=== PATIENT | male | born 1970 | race Caucasian/White ===

== ENCOUNTER 2017-05-30 09:24 | Inpatient (IN) | payer OTHER, MEDICAID ==
[2017-05-30 10:36] LABS: ADD MAN DIFF? NO
[2017-05-30] MEDS: SOD CHLORIDE 0.9% 1,000 ML IV (10:38)
[2017-05-30] MEDS: ONDANSETRON (ODT) 4 MG TAB ODT (10:39)
[2017-05-30] MEDS: HYDROmorphONE 2 MG/ML SYG IV (10:39)
[2017-05-30 10:40] LABS: WHITE BLOOD COUNT 15.9 10^3/ul (4.8-10.8)
[2017-05-30 10:40] LABS: ABNORMAL IP MESSAGE 1; BASOPHIL # 0.1 10^3/ul (0.0-0.1); BASOPHILS % 0.3 % (0.0-2.0); EOSINOPHILS % 0.3 % (0.0-7.0); HEMATOCRIT 40.1 % (42.0-52.0); HEMOGLOBIN 13.8 g/dl (14.0-18.0); LYMPHOCYTES # 1.7 10^3/ul (0.8-2.9); LYMPHOCYTES % 10.9 % (15.0-51.0); MEAN CORPUSCULAR HEMOGLOBIN 32.9 pg (29.0-33.0); MEAN CORPUSCULAR HGB CONC 34.4 g/dl (32.0-37.0); MEAN CORPUSCULAR VOLUME 95.7 fl (82.0-101.0); MEAN PLATELET VOLUME 9.4 fl (7.4-10.4); MONOCYTES % 12.7 % (0.0-11.0); NEUTROPHIL # 11.9 10^3/ul (1.6-7.5); NEUTROPHILS % 74.9 % (39.0-77.0); PLATELET COUNT 275 10^3/UL (140-415); POSITIVE DIFF @See below; RED BLOOD COUNT 4.19 10^6/ul (4.70-6.10); RED CELL DISTRIBUTION WIDTH 12.2 % (11.5-14.5)
[2017-05-30 11:03] LABS: INR 0.94; PROTIME 12.7 Sec (11.9-14.9)
[2017-05-30 11:11] LABS: ALANINE AMINOTRANSFERASE 44 IU/L (13-69); ALKALINE PHOSPHATASE 74 IU/L (42-121); ANION GAP 12 (8-16); ASPARTATE AMINO TRANSFERASE 26 IU/L (15-46); BILIRUBIN,INDIRECT 0.6 mg/dl (0-1.1); BILIRUBIN,TOTAL 0.6 mg/dl (0.2-1.3); BLOOD UREA NITROGEN 11 mg/dl (7-20); CALCIUM 9.5 mg/dl (8.4-10.2); CARBON DIOXIDE 30 mmol/L (21-31); CHLORIDE 102 mmol/L (97-110); CREATININE 0.83 mg/dl (0.61-1.24); GLUCOSE 110 mg/dl (70-220); LIPASE 63 U/L (23-300); POTASSIUM 4.1 mmol/L (3.5-5.1); SODIUM 140 mmol/L (135-144)
[2017-05-30 11:12] LABS: ALBUMIN 4.4 g/dl (3.3-4.9); ALBUMIN/GLOBULIN RATIO 1.46; TOTAL PROTEIN 7.4 g/dl (6.1-8.1)
[2017-05-30] MEDS ORDERED: ONDANSETRON 4 MG INJ IV (11:30)
[2017-05-30] MEDS: FAMOTIDINE 20 MG TAB PO (12:00)
[2017-05-30] MEDS: DOCUSATE SODIUM 100 MG CAP PO ×2 (13:00→20:15)
[2017-05-30] MEDS: morphine 2 MG INJ IV ×4 (13:05→21:01)
[2017-05-30] MEDS: DEXTROSE 5%-0.45% NACL 1,000 ML IV (13:05)
[2017-05-30] MEDS: ZOLPIDEM 5 MG TAB PO (20:51)
[2017-05-30] MEDS: CYCLOBENZAPRINE 10 MG TAB PO (22:02)
[2017-05-31] MEDS: DEXTROSE 5%-0.45% NACL 1,000 ML IV ×2 (01:15→10:50)
[2017-05-31] MEDS: morphine 2 MG INJ IV (01:16)
[2017-05-31] MEDS: hydrALAzine 20 MG INJ IV (03:25)
[2017-05-31] MEDS: HYDROmorphONE 0.5 MG/0.5 ML SYG IV ×7 (04:50→23:19)
[2017-05-31 04:55] LABS: ADD MAN DIFF? NO
[2017-05-31 04:58] LABS: WHITE BLOOD COUNT 16.4 10^3/ul (4.8-10.8)
[2017-05-31 04:58] LABS: ABNORMAL IP MESSAGE 1; BASOPHILS % 0.2 % (0.0-2.0); EOSINOPHILS # 0.1 10^3/ul (0.0-0.5); EOSINOPHILS % 0.3 % (0.0-7.0); HEMATOCRIT 37.8 % (42.0-52.0); HEMOGLOBIN 13.2 g/dl (14.0-18.0); LYMPHOCYTES # 2.1 10^3/ul (0.8-2.9); MEAN CORPUSCULAR HEMOGLOBIN 32.6 pg (29.0-33.0); MEAN CORPUSCULAR HGB CONC 34.9 g/dl (32.0-37.0); MEAN CORPUSCULAR VOLUME 93.3 fl (82.0-101.0); MEAN PLATELET VOLUME 9.5 fl (7.4-10.4); MONOCYTE # 2.1 10^3/ul (0.3-0.9); MONOCYTES % 12.9 % (0.0-11.0); PLATELET COUNT 240 10^3/UL (140-415); POSITIVE DIFF @See below; RED BLOOD COUNT 4.05 10^6/ul (4.70-6.10); RED CELL DISTRIBUTION WIDTH 11.9 % (11.5-14.5)
[2017-05-31 05:26] LABS: ANION GAP 12 (8-16); BLOOD UREA NITROGEN 7 mg/dl (7-20); CALCIUM 9.1 mg/dl (8.4-10.2); CARBON DIOXIDE 25 mmol/L (21-31); CHLORIDE 105 mmol/L (97-110); CREATININE 0.62 mg/dl (0.61-1.24); GLUCOSE 126 mg/dl (70-220); MAGNESIUM 1.7 mg/dl (1.7-2.5); PHOSPHORUS 2.4 mg/dl (2.5-4.9); POTASSIUM 3.7 mmol/L (3.5-5.1); SODIUM 138 mmol/L (135-144)
[2017-05-31] MEDS: FAMOTIDINE 20 MG TAB PO (09:00)
[2017-05-31] MEDS: DOCUSATE SODIUM 100 MG CAP PO ×2 (09:00→20:17)
[2017-05-31] MEDS: ACETAMINOPHEN 325 MG TAB PO (10:04)
[2017-05-31] MEDS: TIOTROPIUM 18 MCG CAPSULE INHA DEV INH (10:30)
[2017-05-31] MEDS: SALMETEROL/FLUTICASONE 250/50 INHA INH ×2 (10:30→20:18)
[2017-05-31 14:00] LABS: ADD UMIC NO; UR ASCORBIC ACID NEGATIVE (NEGATIVE); UR BILIRUBIN (Dip) NEGATIVE (NEGATIVE); UR BLOOD (Dip) NEGATIVE (NEGATIVE); UR CLARITY CLEAR (CLEAR); UR COLOR YELLOW (YELLOW); UR GLUCOSE (Dip) NEGATIVE (NEGATIVE); UR KETONES (Dip) NEGATIVE (NEGATIVE); UR LEUKOCYTE ESTERASE (Dip) NEGATIVE Leu/ul (NEGATIVE); UR NITRITE (Dip) NEGATIVE (NEGATIVE); UR TOTAL PROTEIN (Dip) NEGATIVE (NEGATIVE); UR UROBILINOGEN (Dip) 2+ mg/dL (NEGATIVE)
[2017-05-31 14:02] LABS: HEPATITIS B SURFACE ANTIGEN NEGATIVE (NEGATIVE)
[2017-05-31] MEDS ORDERED: MIDAZOLAM 1 MG/ML 2 ML INJ ×2 (14:07→14:09)
[2017-05-31] MEDS ORDERED: FENTAnyl 50 MCG/ML VIAL (14:07)
[2017-05-31] MEDS ORDERED: morphine SULFATE/PF (10 MG/10 ML) INJ (14:13)
[2017-05-31] MEDS ORDERED: DIPHENHYDRAMINE 50 MG INJ IV ×2 (14:28→14:30)
[2017-05-31] MEDS ORDERED: NALBUPHINE HCL (10 MG/1 ML) INJ IV (14:28)
[2017-05-31] MEDS ORDERED: ONDANSETRON 4 MG INJ IV ×2 (14:30→16:30)
[2017-05-31] MEDS ORDERED: PROCHLORPERAZINE 10 MG INJ IV (14:30)
[2017-05-31] MEDS ORDERED: FENTAnyl 50 MCG/ML VIAL IV ×3 (14:30)
[2017-05-31] MEDS ORDERED: HYDROmorphONE (0.2 MG/ML) 10ML SYG IV ×3 (14:30)
[2017-05-31] MEDS ORDERED: MEPERIDINE 25 MG INJ IV (14:30)
[2017-05-31] MEDS ORDERED: CEFAZOLIN 1 GM INJ (14:39)
[2017-05-31] MEDS ORDERED: LIDOCAINE 2% (SDV) 5 ML INJ (14:39)
[2017-05-31] MEDS ORDERED: PROPOFOL 40 ML (14:39)
[2017-05-31] MEDS ORDERED: EPHEDrine SULFATE 50 MG/5 ML SYG ×2 (14:39→15:51)
[2017-05-31] MEDS ORDERED: ONDANSETRON 4 MG INJ (14:39)
[2017-05-31] MEDS ORDERED: DEXAMETHASONE 4 MG/ML 1 ML INJ (14:39)
[2017-05-31] MEDS ORDERED: FAMOTIDINE 20 MG INJ (14:40)
[2017-05-31 15:44] LABS: HEPATITIS C VIRAL ANTIBODY NEGATIVE (NEGATIVE)
[2017-05-31 15:49] LABS: THYROID STIMULATING HORMONE 0.688 MIU/L (0.465-4.680)
[2017-05-31] MEDS ORDERED: NALOXONE (0.4 MG/ML) INJ IV ×2 (16:30→17:00)
[2017-05-31] MEDS: SOD CHLORIDE 0.9% 1,000 ML IV (16:34)
[2017-05-31] MEDS: POLYMYXIN/BACITRACIN 1L IRRIG (16:50)
[2017-05-31] MEDS: CEFAZOLIN 1 GM/50 ML (PMX) 50 ML IVPB (17:00)
[2017-05-31] MEDS ORDERED: NACL 0.9% 3 ML SYG IV (17:00)
[2017-05-31] MEDS: NICOTINE (21 MG/24 HR) PATCH TRANSDERM (17:30)
[2017-05-31] MEDS: ZOLPIDEM 5 MG TAB PO (23:24)
[2017-06-01] MEDS: DEXTROSE 5%-0.45% NACL 1,000 ML IV ×2 (00:16→17:28)
[2017-06-01] MEDS: CEFAZOLIN 1 GM/50 ML (PMX) 50 ML IVPB ×2 (00:18→08:25)
[2017-06-01] MEDS: HYDROmorphONE 0.5 MG/0.5 ML SYG IV ×5 (02:17→14:18)
[2017-06-01] MEDS: oxyCODONE 5 MG TAB PO ×7 (04:42→23:28)
[2017-06-01] MEDS: SOD CHLORIDE 0.9% 1,000 ML IV ×2 (05:04→17:34)
[2017-06-01 05:37] LABS: ADD MAN DIFF? NO
[2017-06-01 05:42] LABS: ABNORMAL IP MESSAGE 1; BASOPHILS % 0.2 % (0.0-2.0); EOSINOPHILS % 0.3 % (0.0-7.0); HEMATOCRIT 32.6 % (42.0-52.0); HEMOGLOBIN 11.4 g/dl (14.0-18.0); LYMPHOCYTES # 2.4 10^3/ul (0.8-2.9); LYMPHOCYTES % 16.4 % (15.0-51.0); MEAN CORPUSCULAR HEMOGLOBIN 32.6 pg (29.0-33.0); MEAN CORPUSCULAR VOLUME 93.1 fl (82.0-101.0); MEAN PLATELET VOLUME 9.6 fl (7.4-10.4); MONOCYTE # 1.8 10^3/ul (0.3-0.9); MONOCYTES % 12.2 % (0.0-11.0); NEUTROPHIL # 10.2 10^3/ul (1.6-7.5); NEUTROPHILS % 70.4 % (39.0-77.0); PLATELET COUNT 255 10^3/UL (140-415); POSITIVE DIFF @See below; RED CELL DISTRIBUTION WIDTH 11.8 % (11.5-14.5)
[2017-06-01 05:42] LABS: WHITE BLOOD COUNT 14.5 10^3/ul (4.8-10.8)
[2017-06-01 06:05] LABS: ANION GAP 14 (8-16); BLOOD UREA NITROGEN 6 mg/dl (7-20); CALCIUM 8.8 mg/dl (8.4-10.2); CARBON DIOXIDE 25 mmol/L (21-31); CHLORIDE 104 mmol/L (97-110); CREATININE 0.63 mg/dl (0.61-1.24); GLUCOSE 106 mg/dl (70-220); POTASSIUM 3.7 mmol/L (3.5-5.1); SODIUM 139 mmol/L (135-144)
[2017-06-01] MEDS: SALMETEROL/FLUTICASONE 250/50 INHA INH ×2 (08:25→20:53)
[2017-06-01] MEDS: DOCUSATE SODIUM 100 MG CAP PO ×2 (08:25→20:53)
[2017-06-01] MEDS: TIOTROPIUM 18 MCG CAPSULE INHA DEV INH (08:25)
[2017-06-01] MEDS: FAMOTIDINE 20 MG TAB PO (08:25)
[2017-06-01] MEDS: NICOTINE (21 MG/24 HR) PATCH TRANSDERM (08:26)
[2017-06-01] MEDS: ENOXAPARIN 40 MG/0.4 ML SYG SC (08:40)
[2017-06-01] MEDS: HYDROmorphONE 1 MG/ML SYG IV ×2 (17:25→21:26)
[2017-06-01] MEDS: LORAZEPAM 1 MG TAB PO (18:36)
[2017-06-01] MEDS ORDERED: LORAZEPAM 1 MG TAB PO (22:00)
[2017-06-02] MEDS: HYDROmorphONE 1 MG/ML SYG IV ×4 (01:02→12:34)
[2017-06-02] MEDS: oxyCODONE 5 MG TAB PO ×5 (03:11→18:17)
[2017-06-02 05:20] LABS: ADD MAN DIFF? NO
[2017-06-02 05:32] LABS: ABNORMAL IP MESSAGE 1; BASOPHIL # 0.1 10^3/ul (0.0-0.1); BASOPHILS % 0.4 % (0.0-2.0); EOSINOPHILS # 0.1 10^3/ul (0.0-0.5); HEMOGLOBIN 12.2 g/dl (14.0-18.0); LYMPHOCYTES # 2.9 10^3/ul (0.8-2.9); LYMPHOCYTES % 19.4 % (15.0-51.0); MEAN CORPUSCULAR HEMOGLOBIN 33.1 pg (29.0-33.0); MEAN CORPUSCULAR HGB CONC 35.9 g/dl (32.0-37.0); MEAN CORPUSCULAR VOLUME 92.1 fl (82.0-101.0); MEAN PLATELET VOLUME 9.4 fl (7.4-10.4); MONOCYTES % 13.6 % (0.0-11.0); NEUTROPHIL # 9.5 10^3/ul (1.6-7.5); NEUTROPHILS % 65.1 % (39.0-77.0); PLATELET COUNT 268 10^3/UL (140-415); POSITIVE DIFF @See below; RED BLOOD COUNT 3.69 10^6/ul (4.70-6.10); RED CELL DISTRIBUTION WIDTH 11.9 % (11.5-14.5)
[2017-06-02 05:32] LABS: WHITE BLOOD COUNT 14.7 10^3/ul (4.8-10.8)
[2017-06-02] MEDS: DEXTROSE 5%-0.45% NACL 1,000 ML IV (05:53)
[2017-06-02 06:11] LABS: ANION GAP 10 (8-16); BLOOD UREA NITROGEN 10 mg/dl (7-20); CALCIUM 9.1 mg/dl (8.4-10.2); CARBON DIOXIDE 27 mmol/L (21-31); CHLORIDE 102 mmol/L (97-110); CREATININE 0.67 mg/dl (0.61-1.24); GLUCOSE 120 mg/dl (70-220); POTASSIUM 4.1 mmol/L (3.5-5.1); SODIUM 135 mmol/L (135-144)
[2017-06-02] MEDS: SALMETEROL/FLUTICASONE 250/50 INHA INH ×2 (08:28→20:40)
[2017-06-02] MEDS: DOCUSATE SODIUM 100 MG CAP PO ×2 (08:28→20:40)
[2017-06-02] MEDS: FAMOTIDINE 20 MG TAB PO (08:28)
[2017-06-02] MEDS: TIOTROPIUM 18 MCG CAPSULE INHA DEV INH (08:29)
[2017-06-02] MEDS: NICOTINE (21 MG/24 HR) PATCH TRANSDERM (08:30)
[2017-06-02] MEDS: ENOXAPARIN 40 MG/0.4 ML SYG SC (08:30)
[2017-06-02] MEDS: HYDROmorphONE 2 MG/ML SYG IV ×3 (15:52→23:46)
[2017-06-02] MEDS: LORAZEPAM 1 MG TAB PO (20:40)
[2017-06-02] MEDS: HYDROCODONE/APAP (10/325) TAB PO (21:54)
[2017-06-03] MEDS: HYDROCODONE/APAP (10/325) TAB PO ×5 (05:36→20:41)
[2017-06-03] MEDS: HYDROmorphONE 2 MG/ML SYG IV (07:44)
[2017-06-03] MEDS: SALMETEROL/FLUTICASONE 250/50 INHA INH ×2 (08:30→20:38)
[2017-06-03] MEDS: DOCUSATE SODIUM 100 MG CAP PO ×2 (08:30→20:38)
[2017-06-03] MEDS: NICOTINE (21 MG/24 HR) PATCH TRANSDERM (08:30)
[2017-06-03] MEDS: TIOTROPIUM 18 MCG CAPSULE INHA DEV INH (08:30)
[2017-06-03] MEDS: FAMOTIDINE 20 MG TAB PO (08:30)
[2017-06-03] MEDS: ENOXAPARIN 40 MG/0.4 ML SYG SC (08:31)
[2017-06-03] MEDS ORDERED: traMADol 50 MG TAB PO (10:00)
[2017-06-03] MEDS: HYDROmorphONE 0.5 MG/0.5 ML SYG IV ×4 (10:16→22:10)
[2017-06-03] MEDS: LORAZEPAM 1 MG TAB PO (22:15)
[2017-06-04] MEDS: HYDROmorphONE 0.5 MG/0.5 ML SYG IV ×2 (04:08→08:08)
[2017-06-04] MEDS: HYDROCODONE/APAP (10/325) TAB PO ×2 (06:01→10:17)
[2017-06-04] MEDS: NICOTINE (21 MG/24 HR) PATCH TRANSDERM (08:09)
[2017-06-04] MEDS: SALMETEROL/FLUTICASONE 250/50 INHA INH (08:09)
[2017-06-04] MEDS: DOCUSATE SODIUM 100 MG CAP PO (08:10)
[2017-06-04] MEDS: FAMOTIDINE 20 MG TAB PO (08:10)
[2017-06-04] MEDS: ENOXAPARIN 40 MG/0.4 ML SYG SC (08:10)
[2017-06-04] MEDS: TIOTROPIUM 18 MCG CAPSULE INHA DEV INH (08:10)
== END 2017-06-04 12:15 | disposition home or self-care (01) | DRG 482 ==
LOC: E/R 09:24 → MS1 11:07
PROC: 0QS704Z Reposition Left Upper Femur with Internal Fixation Device, Open Approach (ICD-10-PCS; principal; 2017-05-31 14:05)
DX: S72.142A Displaced intertrochanteric fracture of left femur, initial encounter for closed fracture (principal); F17.210 Nicotine dependence, cigarettes, uncomplicated; W01.0XXA Fall on same level from slipping, tripping and stumbling without subsequent striking against object, initial encounter; Y92.513 Shop (commercial) as the place of occurrence of the external cause; Z85.51 Personal history of malignant neoplasm of bladder; G89.29 Other chronic pain
CPT/HCPCS: 36415; 71045; 72170; 72192; 73500; 73510; 73530; 80048; 80053; 81003; 83690; 83735; 84100; 84443; 85025; 85610; 86803; 87340; 93005; 96374; 96375; 97110; 97116; 97163; 97530; 99285-25

== ENCOUNTER 2018-01-21 21:07 | Inpatient (IN) | payer OTHER ==
[2018-01-21] MEDS: HYDROmorphONE 1 MG/ML SYG IV (21:26)
[2018-01-21] MEDS: ONDANSETRON 4 MG INJ IV (21:26)
[2018-01-21 21:31] LABS: ADD MAN DIFF? NO
[2018-01-21 21:36] LABS: BASOPHIL # 0.1 10^3/ul (0.0-0.1); BASOPHILS % 0.6 % (0.0-2.0); EOSINOPHILS # 0.2 10^3/ul (0.0-0.5); EOSINOPHILS % 1.4 % (0.0-7.0); HEMATOCRIT 43.7 % (42.0-52.0); HEMOGLOBIN 15.2 g/dl (14.0-18.0); LYMPHOCYTES # 2.8 10^3/ul (0.8-2.9); LYMPHOCYTES % 19.8 % (15.0-51.0); MEAN CORPUSCULAR HEMOGLOBIN 33.2 pg (29.0-33.0); MEAN CORPUSCULAR HGB CONC 34.8 g/dl (32.0-37.0); MEAN CORPUSCULAR VOLUME 95.4 fl (82.0-101.0); MEAN PLATELET VOLUME 9.7 fl (7.4-10.4); MONOCYTE # 1.2 10^3/ul (0.3-0.9); MONOCYTES % 8.5 % (0.0-11.0); NEUTROPHIL # 9.8 10^3/ul (1.6-7.5); NEUTROPHILS % 69.1 % (39.0-77.0); PLATELET COUNT 324 10^3/UL (140-415); RED BLOOD COUNT 4.58 10^6/ul (4.70-6.10)
[2018-01-21 21:36] LABS: WHITE BLOOD COUNT 14.2 10^3/ul (4.8-10.8)
[2018-01-21] MEDS: SOD CHLORIDE 0.9% 1,000 ML IV (21:36)
[2018-01-21 21:41] LABS: ANION GAP 12 (8-16); BLOOD UREA NITROGEN 14 mg/dl (7-20); CALCIUM 10.1 mg/dl (8.4-10.2); CARBON DIOXIDE 26 mmol/L (21-31); CHLORIDE 110 mmol/L (97-110); CREATININE 1.34 mg/dl (0.61-1.24); GLUCOSE 123 mg/dl (70-220); POTASSIUM 4.1 mmol/L (3.5-5.1); SODIUM 144 mmol/L (135-144)
[2018-01-21 21:53] LABS: TROPONIN-I < 0.012 ng/ml (0.000-0.120)
[2018-01-21] MEDS ORDERED: NALOXONE 2 MG SYG (22:02)
[2018-01-21] MEDS ORDERED: FLUMAZENIL 0.5 MG INJ (22:06)
[2018-01-21] MEDS ORDERED: PROPOFOL 100 ML (23:47)
[2018-01-22] MEDS ORDERED: ETOMIDATE 20 MG INJ
[2018-01-22] MEDS ORDERED: SUCCINYLCHOLINE CHLORIDE 100 MG/5 ML SYG IV
[2018-01-22] MEDS: ETOMIDATE 20 MG INJ IV (00:17)
[2018-01-22] MEDS: SUCCINYLCHOLINE CHLORIDE 100 MG/5 ML SYG IV (00:17)
[2018-01-22] MEDS: PROPOFOL 100 ML IV (00:19)
[2018-01-22] MEDS ORDERED: ONDANSETRON 4 MG INJ IV (00:30)
[2018-01-22] MEDS ORDERED: ACETAMINOPHEN 325 MG TAB PO (00:30)
[2018-01-22 00:35] LABS: AADO2 Arterial 56.4 mmHg (7.0-24.0); Allen Test ACCEPTAB; Arterial Base Excess 0.6 mmol/L (-3.0-3); Arterial Blood Gas Oxygen Sat 99.3 mmHG (95.0-98.0); Arterial Fraction of Oxyhgb 96.2 % (93.0-99.0); Arterial HCO3 26.6 mmol/L (22.0-26.0); Arterial MetHb 0.1 % (0.0-1.5); MODE VENT - AC; Site Right Radial
[2018-01-22] MEDS ORDERED: FAMOTIDINE 20 MG INJ IV ×2 (01:00→21:00)
[2018-01-22] MEDS ORDERED: NACL 0.9% 3 ML SYG IV (01:00)
[2018-01-22 01:05] LABS: AMPHETAMINE/METHAMPHETAMINE Negative (NEGATIVE); BARBITURATES Negative (NEGATIVE); BENZODIAZEPINES Negative (NEGATIVE); CANNABINOIDS Positive (NEGATIVE); COCAINE Negative (NEGATIVE); OPIATES Negative (NEGATIVE)
[2018-01-22] MEDS: SOD CHLORIDE 0.9% 1,000 ML IV (01:53)
[2018-01-22] MEDS: MIDAZOLAM (DRIP) 50 mg/50 mL 50 ML IV (05:16)
[2018-01-22] MEDS: FAMOTIDINE 20 MG INJ IV (05:17)
[2018-01-22] MEDS: D5W-0.45 NACL + KCL 20 MEQ 1,000 ML IV (05:18)
[2018-01-22] MEDS: CEFTRIAXONE 1 GM/50 ML (PMX) 50 ML IVPB (05:25)
[2018-01-22 05:55] LABS: CREATINE KINASE 360 IU/L (23-200)
[2018-01-22 05:59] LABS: D-DIMER 262.82 ng/ml (<460)
[2018-01-22 06:08] LABS: CK INDEX 0.7; CK-MB 2.39 ng/ml (0.0-2.4); TROPONIN-I < 0.012 ng/ml (0.000-0.120)
[2018-01-22] MEDS: morphine 2 MG INJ IV (10:54)
[2018-01-22 11:59] LABS: CREATINE KINASE 383 IU/L (23-200)
[2018-01-22 12:02] LABS: ANION GAP 10 (8-16); BLOOD UREA NITROGEN 14 mg/dl (7-20); CALCIUM 9.1 mg/dl (8.4-10.2); CARBON DIOXIDE 25 mmol/L (21-31); CHLORIDE 113 mmol/L (97-110); GLUCOSE 100 mg/dl (70-220); SODIUM 144 mmol/L (135-144)
[2018-01-22] MEDS: HYDROmorphONE 0.5 MG/0.5 ML SYG IV ×3 (12:07→21:37)
[2018-01-22 12:12] LABS: CK INDEX 0.6; CK-MB 2.41 ng/ml (0.0-2.4); TROPONIN-I < 0.012 ng/ml (0.000-0.120)
[2018-01-22 12:20] LABS: ADD UMIC YES; UR ASCORBIC ACID NEGATIVE (NEGATIVE); UR BILIRUBIN (Dip) NEGATIVE (NEGATIVE); UR BLOOD (Dip) 1+ mg/dL (NEGATIVE); UR CLARITY CLEAR (CLEAR); UR COLOR YELLOW (YELLOW); UR GLUCOSE (Dip) NEGATIVE (NEGATIVE); UR KETONES (Dip) NEGATIVE (NEGATIVE); UR LEUKOCYTE ESTERASE (Dip) NEGATIVE Leu/ul (NEGATIVE); UR MUCUS FEW /HPF (NONE SEEN); UR NITRITE (Dip) NEGATIVE (NEGATIVE); UR RBC 14 /HPF (0-5); UR SPECIFIC GRAVITY (Dip) 1.019 (1.003-1.030); UR TOTAL PROTEIN (Dip) NEGATIVE (NEGATIVE); UR UROBILINOGEN (Dip) NEGATIVE (NEGATIVE); UR WBC 1 /HPF (0-5)
[2018-01-22] MEDS: NICOTINE (21 MG/24 HR) PATCH TRANSDERM (14:38)
[2018-01-22] MEDS: HYDROCODONE/APAP (10/325) TAB PO ×2 (14:39→19:10)
[2018-01-22] MEDS: LORAZEPAM 2 MG INJ IV (20:17)
[2018-01-22] MEDS: ONDANSETRON 4 MG INJ IV (21:37)
[2018-01-23] MEDS: HYDROmorphONE 0.5 MG/0.5 ML SYG IV ×3 (00:38→06:55)
[2018-01-23] MEDS: LORAZEPAM 2 MG INJ IV ×2 (02:19→08:25)
[2018-01-23 06:47] LABS: ADD MAN DIFF? NO
[2018-01-23 06:48] LABS: WHITE BLOOD COUNT 14.7 10^3/ul (4.8-10.8)
[2018-01-23 06:48] LABS: BASOPHIL # 0.1 10^3/ul (0.0-0.1); BASOPHILS % 0.5 % (0.0-2.0); EOSINOPHILS # 0.3 10^3/ul (0.0-0.5); EOSINOPHILS % 1.8 % (0.0-7.0); HEMATOCRIT 35.2 % (42.0-52.0); LYMPHOCYTES % 20.4 % (15.0-51.0); MEAN CORPUSCULAR HEMOGLOBIN 32.3 pg (29.0-33.0); MEAN CORPUSCULAR HGB CONC 34.1 g/dl (32.0-37.0); MEAN CORPUSCULAR VOLUME 94.9 fl (82.0-101.0); MEAN PLATELET VOLUME 9.7 fl (7.4-10.4); MONOCYTE # 1.5 10^3/ul (0.3-0.9); NEUTROPHIL # 9.8 10^3/ul (1.6-7.5); NEUTROPHILS % 66.8 % (39.0-77.0); PLATELET COUNT 219 10^3/UL (140-415); RED BLOOD COUNT 3.71 10^6/ul (4.70-6.10); RED CELL DISTRIBUTION WIDTH 11.8 % (11.5-14.5)
[2018-01-23 07:15] LABS: ALANINE AMINOTRANSFERASE 33 IU/L (13-69); ALBUMIN/GLOBULIN RATIO 1.07; ALKALINE PHOSPHATASE 67 IU/L (42-121); ANION GAP 10 (8-16); ASPARTATE AMINO TRANSFERASE 30 IU/L (15-46); BILIRUBIN,INDIRECT 0.5 mg/dl (0-1.1); BILIRUBIN,TOTAL 0.5 mg/dl (0.2-1.3); BLOOD UREA NITROGEN 15 mg/dl (7-20); CARBON DIOXIDE 27 mmol/L (21-31); CHLORIDE 104 mmol/L (97-110); CREATININE 0.83 mg/dl (0.61-1.24); GLUCOSE 84 mg/dl (70-220); MAGNESIUM 1.8 mg/dl (1.7-2.5); POTASSIUM 3.9 mmol/L (3.5-5.1); SODIUM 137 mmol/L (135-144); TOTAL PROTEIN 5.8 g/dl (6.1-8.1)
[2018-01-23 07:20] LABS: CREATINE KINASE 456 IU/L (23-200)
[2018-01-23] MEDS: ASPIRIN (EC) 81 MG TAB PO (08:10)
[2018-01-23] MEDS: NICOTINE (21 MG/24 HR) PATCH TRANSDERM (08:12)
[2018-01-23] MEDS: HYDROCODONE/APAP (10/325) TAB PO (09:43)
[2018-01-23] MEDS ORDERED: LORAZEPAM 0.5 MG TAB PO (10:00)
[2018-01-23] MEDS ORDERED: ATORVASTATIN 40 MG TAB PO (21:00)
== END 2018-01-23 11:36 | disposition left against medical advice (07) | DRG 71 ==
LOC: E/R 21:07 → TEL 01-22 03:40 → ICU 01-22 00:09 → TEL 01-22 16:40
PROC: 0BH17EZ Insertion of Endotracheal Airway into Trachea, Via Natural or Artificial Opening (ICD-10-PCS; principal; 2018-01-22)
PROC: 5A1935Z Respiratory Ventilation, Less than 24 Consecutive Hours (ICD-10-PCS; 2018-01-22)
DX: G93.49 Other encephalopathy (principal); N17.9 Acute kidney failure, unspecified; G89.29 Other chronic pain; M10.9 Gout, unspecified; F17.200 Nicotine dependence, unspecified, uncomplicated; S72.92XD Unspecified fracture of left femur, subsequent encounter for closed fracture with routine healing; C67.9 Malignant neoplasm of bladder, unspecified
CPT/HCPCS: 31500; 36415; 36600; 70450; 70551; 71045; 73510; 73550; 80048; 80053; 80307; 81001; 82550; 82553; 82803; 82962; 83036; 83735; 84443; 84484; 85025; 85378; 87040; 93005; 93306; 93880; 94002; 94770; 96360; 99291-25

== ENCOUNTER 2018-02-11 09:58 | Emergency (ER) | payer OTHER | END 2018-02-11 11:44 | disposition home or self-care (01) | LOC: E/R 11:44 | DX: F11.220 Opioid dependence with intoxication, uncomplicated (principal); F17.210 Nicotine dependence, cigarettes, uncomplicated; I10 Essential (primary) hypertension; Z72.89 Other problems related to lifestyle; Z79.82 Long term (current) use of aspirin; Z85.51 Personal history of malignant neoplasm of bladder | CPT/HCPCS: 99283-25; Z7502 ==

== ENCOUNTER 2018-05-12 15:48 | Emergency (ER) | payer OTHER ==
[2018-05-12] MEDS: ASPIRIN 325 MG TAB PO (16:16)
[2018-05-12 16:19] LABS: ADD MAN DIFF? NO
[2018-05-12 16:24] LABS: BASOPHIL # 0.1 10^3/ul (0.0-0.1); BASOPHILS % 0.4 % (0.0-2.0); EOSINOPHILS # 0.4 10^3/ul (0.0-0.5); EOSINOPHILS % 2.8 % (0.0-7.0); HEMATOCRIT 37.1 % (42.0-52.0); HEMOGLOBIN 12.5 g/dl (14.0-18.0); LYMPHOCYTES # 3.4 10^3/ul (0.8-2.9); LYMPHOCYTES % 21.5 % (15.0-51.0); MEAN CORPUSCULAR HEMOGLOBIN 32.1 pg (29.0-33.0); MEAN CORPUSCULAR HGB CONC 33.7 g/dl (32.0-37.0); MEAN CORPUSCULAR VOLUME 95.4 fl (82.0-101.0); MEAN PLATELET VOLUME 9.1 fl (7.4-10.4); MONOCYTE # 1.2 10^3/ul (0.3-0.9); MONOCYTES % 7.8 % (0.0-11.0); NEUTROPHIL # 10.5 10^3/ul (1.6-7.5); NEUTROPHILS % 66.9 % (39.0-77.0); PLATELET COUNT 331 10^3/UL (140-415); RED BLOOD COUNT 3.89 10^6/ul (4.70-6.10); RED CELL DISTRIBUTION WIDTH 12.8 % (11.5-14.5)
[2018-05-12 16:24] LABS: WHITE BLOOD COUNT 15.7 10^3/ul (4.8-10.8)
[2018-05-12 16:37] LABS: INR 0.93; PROTIME 12.6 Sec (11.9-14.9)
[2018-05-12 16:38] LABS: PARTIAL THROMBOPLASTIN TIME 28.9 Sec (23.0-35.0)
[2018-05-12 16:41] LABS: ALANINE AMINOTRANSFERASE 15 IU/L (13-69); ALBUMIN/GLOBULIN RATIO 1.21; ALKALINE PHOSPHATASE 74 IU/L (42-121); ANION GAP 6 (5-13); ASPARTATE AMINO TRANSFERASE 15 IU/L (15-46); BILIRUBIN,INDIRECT 0.3 mg/dl (0-1.1); BILIRUBIN,TOTAL 0.3 mg/dl (0.2-1.3); BLOOD UREA NITROGEN 14 mg/dl (7-20); CALCIUM 9.4 mg/dl (8.4-10.2); CARBON DIOXIDE 28 mmol/L (21-31); CHLORIDE 104 mmol/L (97-110); CREATINE KINASE 37 IU/L (23-200); Estimated GFR > 60 mL/min (>60); GLUCOSE 93 mg/dl (70-220); POTASSIUM 4.2 mmol/L (3.5-5.1); SODIUM 138 mmol/L (135-144); TOTAL PROTEIN 7.3 g/dl (6.1-8.1)
[2018-05-12 16:53] LABS: B-TYPE NATRIURETIC PEPTIDE 120 PG/ML (0-125); CK INDEX 0.6; CK-MB < 0.22 ng/ml (0.0-2.4); TROPONIN-I < 0.012 ng/ml (0.000-0.120)
[2018-05-12 16:59] LABS: ETHANOL < 10.0 mg/dl (0-0)
[2018-05-12] MEDS: LORAZEPAM 2 MG INJ IV (17:29)
== END 2018-05-12 19:36 | disposition home or self-care (01) ==
LOC: E/R 15:48
DX: M94.0 Chondrocostal junction syndrome [Tietze] (principal); Z79.82 Long term (current) use of aspirin; Z85.51 Personal history of malignant neoplasm of bladder; Z87.891 Personal history of nicotine dependence
CPT/HCPCS: 80053; 80307; 82550; 82553; 83880; 84484; 85025; 85610; 85730; 93005; 96374; 99284-25

== ENCOUNTER 2018-10-01 17:52 | Emergency (ER) | payer OTHER ==
[2018-10-01] MEDS: morphine 4 MG/ML VIAL IV (18:38)
[2018-10-01] MEDS: KETOROLAC 60 MG INJ IM (18:39)
[2018-10-01] MEDS: morphine 4 MG/ML VIAL IM (18:46)
[2018-10-01] MEDS: ONDANSETRON (ODT) 4 MG TAB ODT (18:53)
== END 2018-10-01 20:06 | disposition home or self-care (01) ==
LOC: FTE 17:52
DX: S69.91XA Unspecified injury of right wrist, hand and finger(s), initial encounter (principal); F17.210 Nicotine dependence, cigarettes, uncomplicated; W27.0XXA Contact with workbench tool, initial encounter; Y92.9 Unspecified place or not applicable
CPT/HCPCS: 29130; 73140; 96372; 96374; 99284-25